=== PATIENT | female | born 1965 | race Caucasian/White ===

== ENCOUNTER 2017-04-07 12:21 | Observation (INO) ==
[2017-04-07] MEDS ORDERED: Nitroglycerin 0.4 MG TAB.SUBL SL PRN ×2 (12:41→16:10)
--- NOTE | 2017-04-07 12:44 | Emergency Department Note ---
Disposition Clinical Impression: Chest pain Qualifiers: Chest pain type: precordial pain Qualified Code(s): R07.2 - Precordial pain Disposition: Admitted As Inpatient Condition: Good Referrals: Aminah Pereira DO [Primary Care Provider] - Forms: ED Satisfaction Letter Time of Disposition: 15:47 SOB HPI - General Chief Complaint: ED Shortness of Breath/Dyspnea Stated Complaint: chest pain/shortness of breath Time Seen by Provider: 04/07/17 12:35 Source: patient Mode of arrival: ambulatory Limitations: no limitations Nursing Notes Reviewed: Yes Vital Signs Reviewed: Yes - History of Present Illness 51-year-old white female presents complaining of shortness of breath and chest discomfort that started a week ago. Initially she was having problems with dyspnea on exertion. Walk across a room and she will get short of breath. In the last 3 days she started getting some chest tightness or discomfort with the shortness of breath. Initially it would last only minutes. She woke up yesterday with substernal chest tightness. It is been there constantly. She fell asleep with it last night and woke up with it this morning. No nausea or diaphoresis. She had some discomfort in her left arm. No back pain. She went to urgent care. They did an EKG and gave her 3 aspirin. She had taken 1 aspirin at home. They referred her here. Pt Subjective Complaint: shortness of breath, chest pain Onset (ago): week(s) Context: occurred during exertion (1) Severity: moderate Consistency/Duration: intermittent Improves with: rest Worsens with: exertion Associated symptoms: Reports: denies other symptoms Treatment prior to arrival: other (Aspirin, 81 mg at home, and 243 mg at urgent care) Cough present: No - Related Data Home oxygen amount: none Home Medications Medication Instructions Recorded Confirmed Aspirin [Lo-Dose Aspirin EC] 81 mg PO DAILY 04/07/17 04/07/17 Atorvastatin [Lipitor] 40 mg PO HS 04/07/17 04/07/17 Carvedilol [Coreg] 12.5 mg PO DAILY 04/07/17 04/07/17 Gabapentin [Neurontin] 300 mg PO TID 04/07/17 04/07/17 Glimepiride [Amaryl] 2 mg PO 0800 04/07/17 04/07/17 Lipase/Protease/Amylase [Creon Dr 2 each PO TID 04/07/17 04/07/17 12,000 Units Capsule] Lisinopril [Zestril] 10 mg PO DAILY 04/07/17 04/07/17 Naproxen [Naprosyn] 500 mg PO BID 04/07/17 04/07/17 metFORMIN [Glucophage] 500 mg PO BIDWM 04/07/17 04/07/17 Allergies Allergy/AdvReac Type Severity Reaction Status Date / Time propoxyphene [From Darvon] Allergy Severe Nausea Verified 04/07/17 11:54 All systems ED: reviewed and negative except as stated. Constitutional: Denies: fever, chills Cardiovascular: Reports: chest pain. Denies: palpitations Respiratory: Reports: dyspnea. Denies: cough, wheezes, hemoptysis, sputum production Gastrointestinal: Denies: abdominal pain, nausea, vomiting Genitourinary: Denies: urgency, dysuria Musculoskeletal: Denies: back pain, neck pain Past Medical History - Past Medical History Medical history: Reports: diabetes, hyperlipidemia, hypertension, other Surgical history: Reports: , cholecystectomy Psychiatric history: Reports: no psych history - Social History Smoking Status: Former smoker Smokeless Tobacco Status: No Alcohol use: Reports: none Drug use: Reports: none Physical Exam - General Limitations: no limitations General appearance: alert, in no apparent distress, obese (Morbid) - Head Head exam: atraumatic, normocephalic - Eye Eye exam: Present: PERRL, EOMI. Absent: scleral icterus, conjunctival injection - ENT ENT exam: normal oropharynx, mucous membranes moist - Neck Neck exam: Present: normal inspection, full ROM, trachea midline. Absent: tenderness, lymphadenopathy - Respiratory Respiratory exam: Present: normal lung sounds bilaterally. Absent: respiratory distress, wheezes - Cardiovascular Cardiovascular exam: Present: regular rate, normal rhythm, normal heart sounds - Abdominal Exam Abdominal exam: Present: soft, Non-Tender, other (Obese) - Extremities Exam Extremities exam: Present: normal inspection, normal capillary refill. Absent: calf tenderness - Neurological Exam Neurological exam: Present: alert, oriented X3, normal gait. Absent: motor sensory deficit - Psychiatric Psychiatric exam: Present: normal affect, normal mood - Skin Skin exam: Present: warm, dry, intact, normal color. Absent: cyanosis, diaphoresis Course - Reevaluation(s) Reevaluation #1: After 2 sublingual nitroglycerin the patient's pain went from a level to "almost gone, a 1 or less. Time: 13:45 Vital Signs Temperature 97.6 F 04/07/17 12:23 Pulse Rate 69 04/07/17 12:23 Respiratory Rate 18 04/07/17 12:23 Blood Pressure 166/103 04/07/17 12:23 O2 Sat by Pulse Oximetry 96 04/07/17 12:23 Temperature 97.6 F 04/07/17 12:23 Pulse Rate 68 04/07/17 15:14 Respiratory Rate 16 04/07/17 15:14 Blood Pressure 142/93 04/07/17 15:14 O2 Sat by Pulse Oximetry 97 04/07/17 15:14 Oxygen Delivery Oxygen Delivery Room Air Shortness of Breath/Dyspnea - MDM Narrative Medical decision making narrative: Differential includes but is not limited to angina, myocardial infarction, GERD , esophageal spasm, congestive heart failure, chest wall pain. Her symptoms are suspicious for angina. Her pain was relieved with nitroglycerin here. She started received aspirin. She will require observation and further evaluation. I discussed this with the patient. She is agreeable. I have talked with Dr. Duron. He accepts the patient for observation admission. - Lab Data Lab results reviewed: Yes I reviewed the patient's lab results. Result diagrams: 04/07/17 12:52 04/07/17 12:52 Lab Results 04/07/17 04/07/17 04/07/17 Range/Units 12:52 12:52 12:52 WBC 7.1 (4.3-11.1) K/mcL RBC 4.03 (3.82-4.97) M/mcL Hgb 11.9 (11.5-15.4) g/dL Hct 36.4 (35.3-44.9) % MCV 90.3 (83.0-100.0) fL MCH 29.5 (28.0-33.3) pg MCHC 32.7 (31.6-35.5) g/dL RDW 14.7 H (11.5-14.5) % Plt Count 260 (140-400) K/mcL MPV 9.4 (9.4-12.4) fL Immature Gran % 0.3 (0-4) % Seg Neutrophils % 64.8 % Lymphocytes % 24.8 % Monocytes % 5.7 % Eosinophils % 3.8 % Basophils % 0.6 % Neutrophils # 4.6 (1.6-8.9) K/mcL Lymphocytes # 1.8 (0.6-4.6) K/mcL Monocytes # 0.4 (0.0-1.3) K/mcL Eosinophils # 0.3 (0.0-0.6) K/mcL Basophils # 0.0 (0.0-0.2) K/mcL Sodium 141 (136-145) mEq/L Potassium 4.0 (3.5-4.5) mEq/L Chloride 109 (98-109) mEq/L Carbon Dioxide 22 (19-29) mEq/L BUN 10 (7-20) mg/dL Creatinine 0.79 (0.57-1.11) mg/dL Est GFR ( Amer) > 60 (> 60) Est GFR (Non-Af Amer) > 60 (> 60) BUN/Creatinine Ratio 13 (6-26) Glucose 103 H (70-99) mg/dL Calculated Osmolality 291 (280-300) Calcium 9.4 (8.6-10.8) mg/dL Total Bilirubin 0.5 (0.2-1.2) mg/dL AST 19 (5-34) Units/L ALT 26 (0-55) Units/L Alkaline Phosphatase 76 (38-126) Units/L Troponin I 0.00 (0-0.03) ng/mL B-Natriuretic Peptide (0-100) pg/mL Serum Total Protein 6.8 (6.0-8.3) g/dL Albumin 3.4 L (3.5-5.0) g/dL Globulin 3.4 (2.4-3.5) g/dL Albumin/Globulin Ratio 1.0 L (1.1-2.2) 04/07/17 04/07/17 Range/Units 12:52 14:55 WBC (4.3-11.1) K/mcL RBC (3.82-4.97) M/mcL Hgb (11.5-15.4) g/dL Hct (35.3-44.9) % MCV (83.0-100.0) fL MCH (28.0-33.3) pg MCHC (31.6-35.5) g/dL RDW (11.5-14.5) % Plt Count (140-400) K/mcL MPV (9.4-12.4) fL Immature Gran % (0-4) % Seg Neutrophils % % Lymphocytes % % Monocytes % % Eosinophils % % Basophils % % Neutrophils # (1.6-8.9) K/mcL Lymphocytes # (0.6-4.6) K/mcL Monocytes # (0.0-1.3) K/mcL Eosinophils # (0.0-0.6) K/mcL Basophils # (0.0-0.2) K/mcL Sodium (136-145) mEq/L Potassium (3.5-4.5) mEq/L Chloride (98-109) mEq/L Carbon Dioxide (19-29) mEq/L BUN (7-20) mg/dL Creatinine (0.57-1.11) mg/dL Est GFR ( Amer) (> 60) Est GFR (Non-Af Amer) (> 60) BUN/Creatinine Ratio (6-26) Glucose (70-99) mg/dL Calculated Osmolality (280-300) Calcium (8.6-10.8) mg/dL Total Bilirubin (0.2-1.2) mg/dL AST (5-34) Units/L ALT (0-55) Units/L Alkaline Phosphatase (38-126) Units/L Troponin I 0.00 (0-0.03) ng/mL B-Natriuretic Peptide 94 (0-100) pg/mL Serum Total Protein (6.0-8.3) g/dL Albumin (3.5-5.0) g/dL Globulin (2.4-3.5) g/dL Albumin/Globulin Ratio (1.1-2.2) - Radiology Data Radiology results reviewed: Yes I reviewed the patient's radiology results. Impressions Chest X-Ray 04/07/17 12:41 IMPRESSION: Cardiomegaly, otherwise, no acute abnormalities are seen in the chest D/ / Epi Cote MD / Epi Cote MD Interpreting Provider: Epi Cote MD - EKG Data EKG attestation: Yes I reviewed and interpreted this EKG. EKG results narrative: Sinus rhythm, rate of 68, nonspecific T-wave flattening. No acute ST segment elevation or depression. The only EKG available for comparison was one done earlier today at urgent care. In comparison there are no significant changes. Trapezius sinus rhythm with rate of 68 with a ND interval of 131 ms, QRS 79 ms with no other ectopy is interpreted by me
[2017-04-07 12:57] LABS: Basophils % 0.6 %; Eosinophils # 0.3 K/mcL (0.0-0.6); Eosinophils % 3.8 %; Hematocrit 36.4 % (35.3-44.9); Hemoglobin 11.9 g/dL (11.5-15.4); Immature Granulocytes % 0.3 % (0-4); Lymphocytes # 1.8 K/mcL (0.6-4.6); Lymphocytes % 24.8 %; Mean Corpuscular HGB Conc 32.7 g/dL (31.6-35.5); Mean Corpuscular Hemoglobin 29.5 pg (28.0-33.3); Mean Corpuscular Volume 90.3 fL (83.0-100.0); Mean Platelet Volume 9.4 fL (9.4-12.4); Monocytes # 0.4 K/mcL (0.0-1.3); Monocytes % 5.7 %; Neutrophils # 4.6 K/mcL (1.6-8.9); Platelet Count 260 K/mcL (140-400); Red Blood Count 4.03 M/mcL (3.82-4.97); Red Cell Distribution Width 14.7 % (11.5-14.5); Segmented Neutrophils % 64.8 %
[2017-04-07 13:15] LABS: Alanine Aminotransferase 26 Units/L (0-55); Albumin 3.4 g/dL (3.5-5.0); Alkaline Phosphatase 76 Units/L (38-126); Aspartate Amino Transferase 19 Units/L (5-34); BUN/Creatinine Ratio 13 (6-26); Bilirubin,Total 0.5 mg/dL (0.2-1.2); Blood Urea Nitrogen 10 mg/dL (7-20); Calcium 9.4 mg/dL (8.6-10.8); Carbon Dioxide 22 mEq/L (19-29); Chloride 109 mEq/L (98-109); Globulin 3.4 g/dL (2.4-3.5); Glucose 103 mg/dL (70-99); Osmolality,Calculated 291 (280-300); Sodium 141 mEq/L (136-145); Total Protein 6.8 g/dL (6.0-8.3); eGFR For African Americans > 60 (> 60); eGFR For Non-African Americans > 60 (> 60)
[2017-04-07] MEDS ORDERED: Naloxone 0.4 MG/ML INJ IVP PRN (16:10)
[2017-04-07] MEDS ORDERED: Ondansetron ODT 4 MG TAB.RAPDIS SL PRN (16:10)
--- NOTE | 2017-04-07 16:18 | Electrocardiograph Report ---
[address] [address] Test Date: 2017-04-07 Pat Name: Janet Irby Department: [id number] Room: [facility] Gender: F Event Producer: Severino : [id number] Requested By: Leonidas Godwin Order Number: [id number] Reading MD: Mj Davis MD Measurements Intervals [place] Rate: 68 P: 40 OK: 131 QRS: 5 QRSD: 79 T: 20 QT: 388 QTc: 405 Interpretive Statements SINUS RHYTHM LOW QRS VOLTAGE IN PRECORDIAL LEADS Electronically Signed On 04-07-2017 16:16:42 EDT by Mj Davis MD
[2017-04-07] MEDS: *HR* Metformin 500 MG TABLET PO SCH (16:48)
[2017-04-07] MEDS: Acetaminophen 325 MG TABLET PO PRN (20:08)
[2017-04-07] MEDS: Gabapentin 300 MG CAPSULE PO SCH (20:09)
[2017-04-08] MEDS ORDERED: *HR* Enoxaparin 40 MG/0.4 ML SYRINGE SQ SCH (06:00)
[2017-04-08] MEDS: Acetaminophen 325 MG TABLET PO PRN (06:22)
[2017-04-08 06:38] VITALS: BP 136/74
[2017-04-08] MEDS: *HR* Metformin 500 MG TABLET PO SCH (07:57)
[2017-04-08] MEDS: Gabapentin 300 MG CAPSULE PO SCH (07:57)
[2017-04-08] MEDS ORDERED: *HR* Glimepiride 2 MG TABLET PO SCH (08:00)
--- NOTE | 2017-04-08 10:29 | Internal Med History&Physical ---
Date of Encounter: 04/08/17 Time of Encounter: 10:00 Assessment and Plan (1) Chest pain Current visit: Yes Status: Acute Repeat cardiac enzymes were ordered through emergency room. Qualifiers: Chest pain type: precordial pain Qualified Code(s): R07.2 - Precordial pain (2) SOB (shortness of breath) Current visit: No Status: Acute Now resolved. Etiology not obvious. BNP peptide was normal. Chest x-ray was generally unremarkable. (3) Uncontrolled hypertension Current visit: No Status: Acute Blood pressure has returned to normal range. Continue home regimen Internal Medicine - H&P: HPI Chief complaint: Dyspnea and chest discomfort Admitted From: Home Plans for Post Hospital Care: Home History of present illness: Ms. Irby is a 51 year old female who came to emergency stating she had increasing dyspnea over the preceding week. Approximately 3 days before coming to ER she developed some discomfort in her chest that she describes as a pressure sensation. It initially would "come and go" but eventually was constant. She went to urgent care and was referred to the emergency room. She was evaluated and admitted to [facility] floor for ongoing care needs. She denies previous similar episodes. She states her dyspnea has resolved and her chest pressure has almost resolved at this time. Her cardiovascular history is significant for hypertension but she denies NC heart failure angina DVT or pulmonary embolus. She does not get angina or anginal equivalents on exertion. Past Med Surg Social Fam HX - Past Medical History Medical history: arthritis, diabetes, hyperlipidemia, hypertension Psychiatric history: no psych history - Past Surgical History Surgical History: - Social History Smoking Status: Never smoker Smokeless Tobacco Status: No Alcohol use: none Drug use: none - Family History Mother Living Status: Cause of : Leukemia Hx Family Cancer: Yes Father Living Status: Cause of : Leukemia Hx Family Cancer: Yes Internal Medicine - H&P: Meds Aspirin [Lo-Dose Aspirin EC] 81 mg PO DAILY 04/07/17 [History] Atorvastatin [Lipitor] 40 mg PO HS 04/07/17 [History] Carvedilol [Coreg] 12.5 mg PO DAILY 04/07/17 [History] Gabapentin [Neurontin] 300 mg PO TID 04/07/17 [History] Glimepiride [Amaryl] 2 mg PO 0800 04/07/17 [History] Lipase/Protease/Amylase [Creon Dr 12,000 Units Capsule] 2 each PO TID 04/07/17 [ History] Lisinopril [Zestril] 10 mg PO DAILY 04/07/17 [History] Naproxen [Naprosyn] 500 mg PO BID 04/07/17 [History] metFORMIN [Glucophage] 500 mg PO BIDWM 04/07/17 [History] 3 Allergy/AdvReac Type Severity Reaction Status Date / Time propoxyphene [From Darvon] Allergy Severe Nausea Verified 04/07/17 11:54 All Systems PM: A 10-system review of systems was performed and is negative for pertinent findings except as documented above in the HPI. Review of systems: Gen.: She states her weight has been stable past few months Cardiovascular: As per history of present illness Respiratory: She is a lifelong nonsmoker and has no known chronic lung disease. She has been diagnosed with AMY and wears BiPAP at at bedtime GI: She has had gallstones removed without cholecystectomy performed. She had 6 polyps found in the past on colonoscopy. She was told at one time she might have Crohn's disease. She has exocrine pancreas insufficiency diagnosis and takes Creon 3 times a day. She denies disorders of her liver. : She denies hematuria dysuria or kidney stones Neurologic: She denies large distribution strokes or seizures. She has a diagnosis of diabetic peripheral neuropathy Endocrine: She was diagnosed with DM 2 approximately 2012. She has hyperlipidemia but denies thyroid disease. Hematology/oncology: She denies blood disorders cancers or anemia. Psychiatric: She denies anxiety depression or other mental health issues. Musculoskeletal: She has DJD but no known gout or other bone joint or muscle disorders. - Constitutional Vitals: Temp Pulse Resp BP Pulse Ox 97.8 F 73 17 136/74 96 04/08/17 06:37 04/08/17 06:37 04/08/17 06:37 04/08/17 06:37 04/08/17 06:37 Exam: In all: She is well-developed well-nourished female who appears in no acute distress HEENT: Head is atraumatic and normocephalic. Eyes: EOMI. There is no scleral icterus. Mouth: Mucosa is moist. Neck: Supple and nontender. There is no thyromegaly or adenopathy noted. Heart: Regular without murmurs gallops or ectopics. Chest: She has no significant tenderness on compression of her costosternal joints. Lungs: No wheezes or crackles are heard. Abdomen: Soft and nontender. No masses or guarding are noted. Extremities: There is no cyanosis edema or clubbing noted. Neurologic: Mental status: She is talkative and a good historian. Cranial nerves: Smile is symmetric. Forehead wrinkles bilaterally. Tongue protrudes midline. EOMI. Motor: There is no pronator drift. Cerebellar: Finger to nose is intact bilaterally. Skin: Warm and dry. She has multiple tattoos. Internal Med - H&P Results - Labs CBC & Chem 7: 04/07/17 12:52 04/07/17 12:52 Labs: Cardiac Enzymes 04/07/17 Range/Units 21:52 Troponin I 0.00 (0-0.03) ng/mL
--- NOTE | 2017-04-08 10:46 | Discharge Summary ---
Date of Encounter: 04/08/17 Time of Encounter: 10:00 - Discharge Diagnosis (1) Chest pain Priority: Primary Status: Acute Qualifiers: Chest pain type: precordial pain Qualified Code(s): R07.2 - Precordial pain (2) SOB (shortness of breath) Priority: Secondary Status: Resolved (3) Uncontrolled hypertension Priority: Secondary Status: Resolved - Discharge Medications Home Medications: Aspirin [Lo-Dose Aspirin EC] 81 mg PO DAILY 04/07/17 [History] Atorvastatin [Lipitor] 40 mg PO HS 04/07/17 [History] Carvedilol [Coreg] 12.5 mg PO DAILY 04/07/17 [History] Gabapentin [Neurontin] 300 mg PO TID 04/07/17 [History] Glimepiride [Amaryl] 2 mg PO 0800 04/07/17 [History] Lipase/Protease/Amylase [Creon Dr 12,000 Units Capsule] 2 each PO TID 04/07/17 [ History] Lisinopril [Zestril] 10 mg PO DAILY 04/07/17 [History] Naproxen [Naprosyn] 500 mg PO BID 04/07/17 [History] metFORMIN [Glucophage] 500 mg PO BIDWM 04/07/17 [History] Allergies/Adverse Reactions: 3 Allergy/AdvReac Type Severity Reaction Status Date / Time propoxyphene [From Darvon] Allergy Severe Nausea Verified 04/07/17 11:54 Date of admission: 04/07/17 16:05 Primary care physician: Aminah Pereira DO - Patient Status Disposition: Home, Self-Care Condition: Good Functional capacity at discharge: independent ambulation Overall status at discharge: patient is progressing back to baseline - Discharge Instructions Follow Up With: Aminah Pereira DO [Primary Care Provider] - 1 week - Diet and Activity Activity: resume usual activities as tolerated Diet: advance to your usual diet Hospital course: Ms. Irby is a 51 year old female who came to emergency stating she had increasing dyspnea over the preceding week. Approximately 3 days before coming to ER she developed some discomfort in her chest that she describes as a pressure sensation. It initially would "come and go" but eventually was constant. She went to urgent care and was referred to the emergency room. She was evaluated and admitted to [facility] for ongoing care needs. Initial orders were written by the emergency room physician. I saw her on April 08 and performed a history and physical and discharge. Repeat cardiac enzymes showed no evidence of myocardial damage. When I saw her I did not think she had myocardial ischemia as the source of her chest pain. The etiology of the pain was not determined with certainty. Her dyspnea had resolved when I saw her. She felt stable for discharge home which I felt was reasonable. She will follow with her PCP within one week. - Time Spent with Patient Total time spent providing and/or coordinating discharge services: - Constitutional Vitals: Temp Pulse Resp BP Pulse Ox 97.8 F 73 17 136/74 96 04/08/17 06:37 04/08/17 06:37 04/08/17 06:37 04/08/17 06:37 04/08/17 06:37
== END 2017-04-08 11:21 | disposition home or self-care (01) ==
LOC: INPPIK 12:21 → EMEROOPIK 12:21 → INPPIK 16:17
PROVIDERS: ADMIT Internal Medicine; ATTEND Internal Medicine